=== PATIENT | male | born 1995 | race Caucasian/White ===

== ENCOUNTER 2018-12-15 19:03 | Emergency (ER) | payer MEDICAID ==
[~2018-12-15] VITALS: Ht 180.3 cm; Wt 87.3 kg
[2018-12-15 19:15] VITALS: Ht 180.3 cm; Wt 87.3 kg
[2018-12-15] MEDS ORDERED: KETOROLAC 15 MG INJ IV STA (20:37)
[2018-12-15] MEDS ORDERED: SOD CHLORIDE 0.9% 1,000 ML IV STA (20:37)
[2018-12-15] MEDS ORDERED: ONDANSETRON 4 MG INJ IV STA (20:37)
[2018-12-15] MEDS ORDERED: FAMOTIDINE 20 MG INJ IV STA (20:37)
--- NOTE | 2018-12-15 20:40 | ERD ---
ER Documentation Chief Complaint Chief Complaint AP X'S 4 WEEKS, PAIN INCREASING HPI 23-year-old male, previously healthy, presents the emergency department, complaining of 1 month with intermittent episodes of epigastric abdominal pain that during the last 2 days has radiated to the right lower quadrant, now the pain is constant, 6/10, associated with nausea and 2 episodes of postprandial emesis today. He denies fever, no chills, no urinary symptoms, no diarrhea or constipation. ROS All systems reviewed and are negative except as per history of present illness. Medications Home Meds Active Scripts Acetaminophen* (Tylenol*) 325 Mg Tablet, 2 TAB PO Q6 PRN for PAIN AND OR ELEVATED TEMP, #20 TAB Prov:SHERWIN DENNISON MD 12/15/18 Ranitidine Hcl* (Zantac*) 150 Mg Tablet, 150 MG PO BID PRN for EPIGASTRIC PAIN, #30 TAB Prov:SHERWIN DENNISON MD 12/15/18 Magnesium Hydroxide* (Milk Of Magnesia*) 400 Mg/5 Ml Oral.susp, 30 ML PO BID for 3 Days, ML Prov:SHERWIN DENNISON MD 12/15/18 Allergies Allergies: Coded Allergies: No Known Allergy (Unverified , 12/15/18) FmHx Family History: No diabetes, No coronary disease Physical Exam Vitals Vital Signs Date Temp Pulse Resp B/P (MAP) Pulse Ox O2 O2 Flow FiO2 Time Delivery Rate 12/15/18 98.4 89 18 172/104 100 Room Air 22:11 (126) 12/15/18 98.6 110 22 165/93 100 19:15 (117) Physical Exam Const: No acute distress Head: Atraumatic Eyes: Normal Conjunctiva ENT: Normal External Ears, Nose and Mouth. Neck: Full range of motion. No meningismus. Resp: Clear to auscultation bilaterally Cardio: Regular rate and rhythm, no murmurs Abd: Soft, non tender, non distended. Normal bowel sounds Skin: No petechiae or rashes Back: No midline or flank tenderness Ext: No cyanosis, or edema Neur: Awake and alert Psych: Normal Mood and Affect Result Diagram: 12/15/18205212/15/182052 Results 24 hrs Laboratory Tests Test 12/15/18 20:53 White Blood Count 13.7 10^3/ul Red Blood Count 6.00 10^6/ul Hemoglobin 16.0 g/dl Hematocrit 47.5 % Mean Corpuscular Volume 79.2 fl Mean Corpuscular Hemoglobin 26.7 pg Mean Corpuscular Hemoglobin Concent 33.7 g/dl Red Cell Distribution Width 13.7 % Platelet Count 496 10^3/UL Mean Platelet Volume 9.5 fl Immature Granulocytes % 0.400 % Neutrophils % 62.9 % Lymphocytes % 27.0 % Monocytes % 8.8 % Eosinophils % 0.5 % Basophils % 0.4 % Nucleated Red Blood Cells % 0.0 /100WBC Immature Granulocytes # 0.050 10^3/ul Neutrophils # 8.6 10^3/ul Lymphocytes # 3.7 10^3/ul Monocytes # 1.2 10^3/ul Eosinophils # 0.1 10^3/ul Basophils # 0.1 10^3/ul Nucleated Red Blood Cells # 0.0 10^3/ul Urine Color YELLOW Urine Clarity CLEAR Urine pH 6.0 Urine Specific [place] 1.030 Urine Ketones NEGATIVE mg/dL Urine Nitrite NEGATIVE mg/dL Urine Bilirubin NEGATIVE mg/dL Urine Urobilinogen NEGATIVE mg/dL Urine Leukocyte Esterase NEGATIVE Ana/ul Urine Microscopic RBC 15 /HPF Urine Microscopic WBC 0 /HPF Urine Mucus FEW /HPF Urine Hemoglobin 2+ mg/dL Urine Glucose NEGATIVE mg/dL Urine Total Protein NEGATIVE mg/dl Sodium Level 141 mmol/L Potassium Level 4.2 mmol/L Chloride Level 101 mmol/L Carbon Dioxide Level 27 mmol/L Anion Gap 13 Blood Urea Nitrogen 15 mg/dl Creatinine 0.89 mg/dl Est Glomerular Filtrat Rate mL/min > 60 mL/min Glucose Level 99 mg/dl Calcium Level 10.2 mg/dl Total Bilirubin 0.9 mg/dl Direct Bilirubin 0.00 mg/dl Indirect Bilirubin 0.9 mg/dl Aspartate Amino Transf (AST/SGOT) 28 IU/L Alanine Aminotransferase (ALT/SGPT) 43 IU/L Alkaline Phosphatase 98 IU/L Total Protein 8.6 g/dl Albumin 4.9 g/dl Globulin 3.70 g/dl Albumin/Globulin Ratio 1.32 Lipase 71 U/L Current Medications Medications Dose Sig/Tami Start Time Status Last (Trade) Ordered Route PRN Stop Time Admin Dose Reason Admin Sodium 1,000 ml @ Q1H STAT 12/15/18 DC 12/15/18 Chloride 1,000 mls/hr IV 20:37 12/15/18 21:19 21:36 Ondansetron 4 mg ONCE STAT 12/15/18 DC 12/15/18 HCl (Zofran IV 20:37 12/15/18 21:18 Inj) 20:40 Famotidine 20 mg ONCE STAT 12/15/18 DC 12/15/18 (Pepcid Iv) IV 20:37 12/15/18 21:18 20:40 Ketorolac 15 mg ONCE STAT 12/15/18 DC 12/15/18 Tromethamine IV 20:37 12/15/18 21:18 (Toradol) 20:40 Patient: JORY ALVARADO : 1995 Age: 23 Sex: M MR #: [id number] DOS: 12/15/182036 Ordering MD: SHERWIN DENNISON MD Location: [facility] Room/Bed: PROCEDURE: CT Abdomen and Pelvis without contrast. CLINICAL INDICATION: Right lower quadrant abdominal pain. TECHNIQUE: CT scan of the abdomen and pelvis without contrast was performed on a multidetector high-resolution CT scanner. The patient was scanned without intravenous contrast. Coronal and sagittal reformatted images were obtained from the axial source images. Images were reviewed on a high-resolution PACS workstation. The total exam CTDI equals 12.21 mGy and the total exam DLP equals 820.28 mGy-cm. DICOM images are available. One or more of the following dose reduction techniques were utilized: 1.) Automated exposure control 2.) Adjustment of the mA +/- kV according to patient's size 3.) Use of iterative reconstruction technique. COMPARISON: None. FINDINGS: CT abdomen: The lung bases are clear. The heart size is normal, without pericardial thickening or effusion. The liver demonstrates low noncontrast attenuation compatible with a degree of fatty infiltration. Otherwise, the liver is normal in size without focal mass or intrahepatic biliary dilatation. The spleen is normal in size and homogeneous in density. The stomach is partially collapsed, but is grossly unremarkable. The pancreas as visualized is normal. The gallbladder and biliary tree are unremarkable and there is no evidence for biliary dilatation. The adrenal glands are symmetric and normal. The kidneys are symmetrically unremarkable as well. No renal calculus or obstructive uropathy or mass lesion is seen. The aorta is of normal caliber. No abdominal aortic vascular calcifications are present. There is no retroperitoneal lymphadenopathy. The tomas hepatis region is clear. Right lower quadrant mesenteric lymph nodes measure up to about 15 x 9 mm, and may represent mesenteric adenitis in the setting of right lower quadrant pain. The cecum is unremarkable without evident mural thickening or luminal narrowing. Diverticulosis is seen at the splenic flexure. The splenic flexure and descending colon a small amount of air, without solid stool. The structures somewhat contracted, with mild mural thickening and luminal narrowing. CT pelvis: Mild nonspecific small bowel motility disorder, with solid stool seen in the nondilated distal and terminal ileum. Otherwise, the small bowel loops situated within the pelvis are unremarkable. The pelvic organs are normal. The pelvic sidewalls and inguinal regions are clear. The sigmoid colon and rectum are remarkable for mild sigmoid colon diverticulosis. No mass, lymphadenopathy, or free fluid is seen. No acute inflammation is seen. The air containing appendix measures up to about 5 mm in diameter. No acute appendicitis. The surrounding osseous structures are remarkable for degenerative spondylosis of the spine. No osteolytic or osteoblastic lesion is detected. IMPRESSION: 1. No acute appendicitis. 2. Right lower quadrant mesenteric adenopathy is mild, suggesting mesenteric adenitis. 3. Fatty infiltration of the liver. 4. Mild small bowel motility disorder, with solid stool seen in the nondilated distal and terminal ileum. Procedures/MDM Vital signs stable. Differential diagnosis include but not limited to: UTI, colitis, gastroenteritis, kidney stones, irritable bowel syndrome, inflammatory bowel syndrome, malabsorption syndrome, cholelithiasis, food intolerance, medication side effect, pancreatitis, diverticulitis, bowel obstruction. Physical examination and clinical presentation consistent most likely with GERD and constipation. During the ED course the patient remained stable, no new complaints. The patient received treatment with IV fluids and IV medications presenting overall improvement of the symptoms. Results and clinical impression discussed with the patient who agrees with management. The patient is stable to be treated outpatient and will be discharged home; some side effects of prescribed medications (headache, rash, nausea, vomiting, diarrhea, drowsiness, habituation, bleeding, hypertension, interactions with other medications) were reviewed. The patient was informed that the evaluation in the emergency department has been done to rule out an acute emergency, therefore, chronic conditions like malignancy or other diseases have not been evaluated; therefore, the patient was instructed to follow up with the primary care provider in the next 48h. If symptoms persist, worsen or new symptoms develop, then patient should return to the ED immediately. Instructions explained and given directly by me to the patient with acknowledgment and demonstrated understanding. Disclaimer: Inadvertent spelling and grammatical errors are likely due to EHR/dictation software use and do not reflect on the overall quality of patient care. Also, please note that the electronic time recorded on this note does not necessarily reflect the actual time of the patient encounter. Departure Diagnosis: Primary Impression: Abdominal pain Additional Impressions: Constipation GERD (gastroesophageal reflux disease) Condition: Stable Patient Instructions: Constipation (Adult) Additional Instructions: Thank you very much for allowing us to participate in your care. Your health and safety is our top priority at [facility]. The evaluation in the emergency department has been done to rule out an acute emergency, therefore, chronic conditions like malignancy or other diseases have not been evaluated; therefore, you need to follow up with a primary care provider in the next 48h. If symptoms persist, worsen or new symptoms develop, then patient should return to the ED immediately. Call your primary care doctor TOMORROW for an appointment during the next 2-4 days and bring all the information provided. Have prescriptions filled and follow precisely the directions on the label. If the symptoms get worse and your provider is unavailable, return to the Emergency Department immediately. SHERWIN DENNISON MD December 15, 2018 20:40
[2018-12-15] MEDS ORDERED: ACET325T33 PO (21:54)
[2018-12-15] MEDS ORDERED: RANI150T35 PO (21:54)
[2018-12-15] MEDS ORDERED: MAGN400O19 PO (21:54)
[2018-12-15 22:11] VITALS: BP 172/104; PULSE 89; RESP 18
== END 2018-12-15 22:12 | disposition home or self-care (01) ==
LOC: FTE 19:03
DX: K59.00 Constipation, unspecified (principal); K21.9 Gastro-esophageal reflux disease without esophagitis
CPT/HCPCS: 36415; 74176; 80053; 81001; 83690; 85025; 96361; 96374; 96375; J1885; J2405; J7030; Z7502; Z7610